=== PATIENT | female | born 1970 | race American Indian/Alaskan Native ===

== ENCOUNTER 2017-04-12 16:13 | Inpatient (IN) | payer OTHER ==
[2017-04-12] MEDS ORDERED: BENADRYL IV ONE (18:51)
[2017-04-12 19:20] LABS: Bilirubin,Urine MOD (Negative); Blood,Urine NEG (Negative); Color,Urine Amber (Yellow); Mucus,Urine FEW /HPF; Protein,Urine <15 mg/dL mg/dL (Negative)
[2017-04-12 19:26] LABS: Ictotest,Urine Positive (Negative)
[2017-04-12 19:39] LABS: Hematocrit 36.2 % (30.3-42.9); Hemoglobin 12.1 gm/dl (10.1-14.3); Mean Corpuscular HGB Conc 34 % (30-34); Mean Corpuscular Hemoglobin 30 pg (28-32); Mean Corpuscular Volume 89 fl (79-97); Platelet Count 414 K/mm3 (140-440); Red Blood Count 4.08 M/mm3 (3.65-5.03); Red Cell Distribution Width 16.4 % (13.2-15.2)
[2017-04-12 19:48] LABS: Alanine Aminotransferase 203 units/L (7-56); Albumin 3.9 g/dL (3.9-5); BUN/Creatinine Ratio 30; Blood Urea Nitrogen 9 mg/dL (7-17); Calcium 9.5 mg/dL (8.4-10.2); Hemolysis Index 0; INR 0.84 (0.87-1.13)
[2017-04-12 19:49] LABS: Partial Thromboplastin Time 26.6 Sec. (24.2-36.6)
--- NOTE | 2017-04-12 20:04 | XRay Report ---
FINAL REPORT PROCEDURE: XR CHEST ROUTINE 2V TECHNIQUE: AP lateral chest HISTORY: cough COMPARISON: No prior studies are available for comparison. FINDINGS: Heart is not enlarged. Mild central peribronchial cuffing with slight bronchial sheath thickening.. No consolidation or effusion IMPRESSION: Mild central bronchitis without pneumonia or effusion
--- NOTE | 2017-04-12 21:50 | Emergency Department Report ---
ED General Adult HPI - General Chief complaint: Chest Pain Stated complaint: FLU LIKE SYMPTOMS Time Seen by Provider: 04/12/17 18:27 Source: patient Mode of arrival: Ambulatory Limitations: No Limitations - History of Present Illness Initial comments: Patient is a 46-year-old Female who is coming in with 3 weeks of some tightness in the chest. Patient states this is worse early in the morning and late in the evening. She says during the middle of the day it's improved. She says tight warm feeling. Extends up into her shoulders and neck. Patient denies this being exertional states there is no shortness of breath. She also states she is very itchy all over she's had some loose stools that are changed color, neon green sweats chills and nausea. Patient denies any cough cold congestion and sneezing fever at this time. - Related Data Allergies Allergy/AdvReac Type Severity Reaction Status Date / Time aspirin Allergy Hives Verified 04/12/17 16:23 ibuprofen Allergy Hives Verified 04/12/17 16:23 ED Review of Systems ROS: Stated complaint: FLU LIKE SYMPTOMS Other details as noted in HPI Comment: All other systems reviewed and negative ED Past Medical Hx - Past Medical History Hx Hypertension: Yes Hx Diabetes: Yes Additional medical history: MIRGRAINES AND HIGH CHOLESTROL ED Physical Exam - General Limitations: No Limitations General appearance: alert, in no apparent distress - Head Head exam: Present: atraumatic, normocephalic - Eye Eye exam: Present: EOMI, scleral icterus - ENT ENT exam: Present: mucous membranes moist - Neck Neck exam: Present: normal inspection - Respiratory Respiratory exam: Present: normal lung sounds bilaterally. Absent: respiratory distress, wheezes, rales, rhonchi - Cardiovascular Cardiovascular Exam: Present: regular rate, normal rhythm. Absent: systolic murmur, diastolic murmur, rubs, gallop - GI/Abdominal GI/Abdominal exam: Present: soft, normal bowel sounds. Absent: distended, tenderness, guarding, rebound - Extremities Exam Extremities exam: Present: normal inspection - Back Exam Back exam: Present: normal inspection - Neurological Exam Neurological exam: Present: alert, oriented X3 - Psychiatric Psychiatric exam: Present: normal affect, normal mood - Skin Skin exam: Present: warm, dry, intact, normal color. Absent: rash ED Course Vital Signs 04/12/17 16:24 Temperature 99 F Pulse Rate 100 H Respiratory 18 Rate Blood Pressure 129/84 ED Medical Decision Making - Lab Data Result diagrams: 04/12/17 19:07 04/12/17 19:07 Lab Results 04/12/17 04/12/17 04/12/17 Range/Units 19:05 19:07 19:07 WBC 9.4 (4.5-11.0) K/mm3 RBC 4.08 (3.65-5.03) M/mm3 Hgb 12.1 (10.1-14.3) gm/dl Hct 36.2 (30.3-42.9) % MCV 89 (79-97) fl MCH 30 (28-32) pg MCHC 34 (30-34) % RDW 16.4 H (13.2-15.2) % Plt Count 414 (140-440) K/mm3 Lymph % (Auto) Sound Printer [place] % (Auto) Sound Printer Eos % (Auto) Sound Printer Baso % (Auto) Sound Printer Lymph # Sound Printer [place] # Sound Printer Eos # Sound Printer Baso # Sound Printer Seg Neutrophils % Sound Printer Seg Neutrophils # Sound Printer PT (12.2-14.9) Sec. INR (0.87-1.13) APTT (24.2-36.6) Sec. Sodium 135 L (137-145) mmol/L Potassium 3.7 (3.6-5.0) mmol/L Chloride 95.5 L (98-107) mmol/L Carbon Dioxide 22 (22-30) mmol/L Anion Gap 21 mmol/L BUN 9 (7-17) mg/dL Creatinine 0.3 L (0.7-1.2) mg/dL Estimated GFR > 60 ml/min BUN/Creatinine Ratio 30 % Glucose 107 H (65-100) mg/dL Calcium 9.5 (8.4-10.2) mg/dL Total Bilirubin 9.50 H (0.1-1.2) mg/dL AST 340 H (5-40) units/L ALT 203 H (7-56) units/L Alkaline Phosphatase 2241 H (35-129) units/L Troponin T < 0.010 (0.00-0.029) ng/mL Total Protein 8.8 H (6.3-8.2) g/dL Albumin 3.9 (3.9-5) g/dL Albumin/Globulin Ratio 0.8 % Lipase (13-60) units/L Urine Color Sarah (Yellow) Urine Turbidity Clear (Clear) Urine pH 5.0 (5.0-7.0) Ur Specific [place] 1.021 (1.003-1.030) Urine Protein <15 mg/dl (Negative) mg/dL Urine Glucose (UA) Neg (Negative) mg/dL Urine Ketones Neg (Negative) mg/dL Urine Blood Neg (Negative) Urine Nitrite Neg (Negative) Urine Bilirubin Mod (Negative) Urine Ictotest Positive (Negative) Urine Urobilinogen 4.0 (<2.0) mg/dL Ur Leukocyte Esterase Tr (Negative) Urine WBC (Auto) 2.0 (0.0-6.0) /HPF Urine RBC (Auto) 2.0 (0.0-6.0) /HPF U Epithel Cells (Auto) 5.0 (0-13.0) /HPF Urine Mucus Few /HPF 04/12/17 04/12/17 Range/Units 19:07 19:07 WBC (4.5-11.0) K/mm3 RBC (3.65-5.03) M/mm3 Hgb (10.1-14.3) gm/dl Hct (30.3-42.9) % MCV (79-97) fl MCH (28-32) pg MCHC (30-34) % RDW (13.2-15.2) % Plt Count (140-440) K/mm3 Lymph % (Auto) Ward % (Auto) Eos % (Auto) Baso % (Auto) Lymph # Ward # Eos # Baso # Seg Neutrophils % Seg Neutrophils # PT 11.9 L (12.2-14.9) Sec. INR 0.84 L (0.87-1.13) APTT 26.6 (24.2-36.6) Sec. Sodium (137-145) mmol/L Potassium (3.6-5.0) mmol/L Chloride (98-107) mmol/L Carbon Dioxide (22-30) mmol/L Anion Gap mmol/L BUN (7-17) mg/dL Creatinine (0.7-1.2) mg/dL Estimated GFR ml/min BUN/Creatinine Ratio % Glucose (65-100) mg/dL Calcium (8.4-10.2) mg/dL Total Bilirubin (0.1-1.2) mg/dL AST (5-40) units/L ALT (7-56) units/L Alkaline Phosphatase (35-129) units/L Troponin T (0.00-0.029) ng/mL Total Protein (6.3-8.2) g/dL Albumin (3.9-5) g/dL Albumin/Globulin Ratio % Lipase 36 (13-60) units/L Urine Color (Yellow) Urine Turbidity (Clear) Urine pH (5.0-7.0) Ur Specific [place] (1.003-1.030) Urine Protein (Negative) mg/dL Urine Glucose (UA) (Negative) mg/dL Urine Ketones (Negative) mg/dL Urine Blood (Negative) Urine Nitrite (Negative) Urine Bilirubin (Negative) Urine Ictotest (Negative) Urine Urobilinogen (<2.0) mg/dL Ur Leukocyte Esterase (Negative) Urine WBC (Auto) (0.0-6.0) /HPF Urine RBC (Auto) (0.0-6.0) /HPF U Epithel Cells (Auto) (0-13.0) /HPF Urine Mucus /HPF - EKG Data -: EKG Interpreted by Ca - EKG Data Interpretation: other (EKG shows sinus rhythm a rate of 89 normal axis normal intervals no ST segment elevations or depressions, interpretation is 1644) - Radiology Data Radiology results: pending - Medical Decision Making Patient is a 46-year-old female who is status post cystectomy several years ago who is presenting with jaundice. Patient's bilirubin is 9.5 with elevated alkaline phosphatase and LFTs. Patient will be admitted to Dr. Villaseñor with the hospitalist service her CT abdomen and pelvis is pending review by radiology staff there's been a delay with reading her films. Patient is stable for admission to [facility] floor. Critical care attestation.: If time is entered above; I have spent that time in minutes in the direct care of this critically ill patient, excluding procedure time. ED Disposition Clinical Impression: Hyperbilirubinemia, Elevated liver enzymes Disposition: OP ADMIT IP TO THIS HOSP Is pt being admited?: Yes Does the pt Need Aspirin: No Condition: Stable Referrals: PRIMARY CARE, [Primary Care Provider] - 3-5 Days
--- NOTE | 2017-04-12 22:14 | Cat Scan Report ---
FINAL REPORT PROCEDURE: CT ABDOMEN PELVIS W CON TECHNIQUE: Computerized axial tomography of the abdomen and pelvis was performed after the IV injection of iodinated nonionic contrast. HISTORY: jaundice COMPARISON: No prior studies are available for comparison. FINDINGS: Visualized lower thorax: No significant abnormality. Liver: Diffuse fatty infiltration of liver. Mild to moderate intrahepatic duct dilatation. Moderate extrahepatic biliary duct dilatation with possible sludge in the distal common bile duct. There is apparent stent migration distally extending from the mid to distal common bile duct to horizontal portion of the duodenum. The stent appears to of migrated 4 centimeters distally and may need to be repositioned.. Spleen: Normal size and attenuation. Gallbladder and biliary system: Normal. Pancreas: Normal. Adrenals: Normal. Kidneys: Lobulation and cortical scarring of the kidneys. GI tract: Normal. Lymph nodes and mesentery: Normal. Vasculature: Normal. Bladder: Normal. Reproductive organs: Heterogeneous lobular uterus. Peritoneum: No free fluid. Musculoskeletal structures: No significant abnormality. Other: None. IMPRESSION: Distal migration of the endo biliary duct stent at least 4-5 centimeters resulting in intrahepatic and extrahepatic biliary duct dilatation with sludge accumulation at the mid to distal common bile duct near the proximal endo biliary stent . Suggest adjustment of the endo biliary duct stent
[2017-04-12] MEDS ORDERED: ZOFRAN IV PRN (22:20)
[2017-04-12] MEDS ORDERED: D50W (25GM) Syringe IV PRN (22:20)
[2017-04-12] MEDS ORDERED: DULCOLAX PR PRN (22:20)
[2017-04-12] MEDS ORDERED: MILK OF MAGNESIA PO PRN (22:20)
--- NOTE | 2017-04-12 23:47 | History and Physical Report ---
History of Present Illness Date of examination: 04/12/17 Date of admission: 04/12/17 22:20 Chief complaint: chest pain for 4 weeks itching for 3 weeks hot and cold for 2 weeks History of present illness: Patient is a 46-year-old Female who is coming in with 4 weeks of some tightness in the chest. Patient states this is worse early in the morning and late in the evening. She says during the middle of the day it's improved. its intermittent, happens every 2-3 days, non exertional. Extends up into her shoulders and neck. Patient denies shortness of breath, palpitations, dizziness or LOC. She also states she is very itchy all over she's had some loose stools that are changed color, sweating chills and nausea. Patient denies any cough cold congestion and sneezing fever at this time. denies recent travel, OTC meds or alcohol abuse. she was noted to be jaundiced with markedly abnormal LFTs and is being admitted for further management Past History Past Medical History: diabetes, hypertension, hyperlipidemia, other (migraine) Past Surgical History: cholecystectomy Social history: no significant social history. denies: smoking, alcohol abuse Family history: no significant family history Medications and Allergies Allergies Allergy/AdvReac Type Severity Reaction Status Date / Time aspirin Allergy Hives Verified 04/12/17 16:23 ibuprofen Allergy Hives Verified 04/12/17 16:23 Active Meds: Active Medications Acetaminophen (Tylenol) 650 mg PO Q4H PRN PRN Reason: Pain MILD(1-3)/Fever >100.5/MARISCAL Bisacodyl (Dulcolax) 10 mg NV QDAY PRN PRN Reason: Constipation unrelieved by [facility] Dextrose (D50w (25gm) Syringe) 50 ml IV PRN PRN PRN Reason: Hypoglycemia Heparin Sodium (Porcine) (Heparin) 5,000 unit SUB-Q Q8HR CROW Sodium Chloride (Nacl 0.45% 1000 Ml) 1,000 mls @ 75 mls/hr IV DIRECT CROW Insulin Aspart (Novolog) 0 units SUB-Q ACHS CROW; Protocol Magnesium Hydroxide (Milk Of Magnesia) 30 ml PO Q4H PRN PRN Reason: Constipation Ondansetron HCl (Zofran) 4 mg IV Q8H PRN PRN Reason: N/V unrelieved by Reglan Review of Systems Constitutional: chills, sweats, fatigue, no weight loss, no fever, no anorexia, no weakness, no lethargy Ears, nose, mouth and throat: no nasal congestion, no sore throat, no headache Cardiovascular: high blood pressure, no chest pain, no orthopnea, no palpitations, no syncope, no shortness of breath Respiratory: no cough, no shortness of breath Gastrointestinal: nausea, vomiting (for 1 day), diarrhea (for 1 day), no abdominal pain, no melena Genitourinary Female: no urge incontinence Rectal: no pain Musculoskeletal: no low back pain Integumentary: pruritis, jaundice, dryness, no rash Neurological: no head injury, no seizures, no syncope Psychiatric: no anxiety, no depression Endocrine: no excessive thirst, no polydipsia, no polyuria Allergic/Immunologic: no urticaria Exam - Constitutional Vitals: Temp Pulse Resp BP Pulse Ox 99 F 81 14 129/84 100 04/12/17 16:24 04/12/17 22:05 04/12/17 22:05 04/12/17 16:24 04/12/17 22:05 General appearance: Present: no acute distress, well-nourished - EENT Eyes: Present: PERRL, EOM intact, scleral icterus ENT: hearing intact, clear oral mucosa - Neck Neck: Present: supple, normal ROM. Absent: masses or JVD - Respiratory Respiratory effort: normal Respiratory: bilateral: CTA - Cardiovascular Rhythm: regular Heart Sounds: Present: S1 & S2 - Extremities Extremities: No edema - Abdominal General gastrointestinal: Present: soft, non-tender. Absent: hepatomegaly, splenomegaly - Rectal Rectal Exam: deferred - Integumentary Integumentary: Present: clear, warm. Absent: rash - Musculoskeletal Musculoskeletal: strength equal bilaterally - Psychiatric Psychiatric: appropriate mood/affect - Neurologic Neurologic: CNII-XII intact, no focal deficits, moves all extremities Results - Labs CBC & Chem 7: 04/12/17 19:07 04/12/17 19:07 Labs: Abnormal lab results 04/12/17 04/12/17 04/12/17 Range/Units 19:07 19:07 19:07 RDW 16.4 H (13.2-15.2) % PT 11.9 L (12.2-14.9) Sec. INR 0.84 L (0.87-1.13) Sodium 135 L (137-145) mmol/L Chloride 95.5 L (98-107) mmol/L Creatinine 0.3 L (0.7-1.2) mg/dL Glucose 107 H (65-100) mg/dL Total Bilirubin 9.50 H (0.1-1.2) mg/dL AST 340 H (5-40) units/L ALT 203 H (7-56) units/L Alkaline Phosphatase 2241 H (35-129) units/L Total Protein 8.8 H (6.3-8.2) g/dL Assessment and Plan - Patient Problems (1) Elevated liver enzymes Current Visit: Yes Status: Acute Plan to address problem: unclear etialogy r/o acute hepatitis r/o obstructive jaundice ( she has hx of patricio.) CT abd/pelvis reviewed there is distal migration of endobiliary duct stent with sludge accumulation of distal CBD gi consult on board will keep patient NPO IN CASE she needs ERCP (2) Type 2 diabetes mellitus Current Visit: Yes Status: Chronic Qualifiers: Diabetes mellitus complication status: without complication Diabetes mellitus manager terminal insulin use: without manager terminal use Qualified Code(s): E11.9 - Type 2 diabetes mellitus without complications Plan to address problem: start on insulin SS (3) HTN (hypertension) Current Visit: Yes Status: Acute Qualifiers: Hypertension type: essential hypertension Qualified Code(s): I10 - Essential (primary) hypertension Plan to address problem: home meds not known and not entered she is normotensive at this time (4) Hyperlipidemia Current Visit: Yes Status: Chronic Qualifiers: Hyperlipidemia type: mixed hyperlipidemia Qualified Code(s): E78.2 - Mixed hyperlipidemia Plan to address problem: home meds not entered will hold statin due to abnormal LFTs (5) Hyperbilirubinemia Current Visit: Yes Status: Acute Plan to address problem: 2/2 CBD sludge and endo biliary duct stent migration
[2017-04-13] MEDS: TYLENOL PO PRN ×2 (00:41→08:39)
[2017-04-13] MEDS: NACL 0.45% 1000 ML 1,000 ML IV SCH ×2 (00:42→13:29)
[2017-04-13] MEDS: BENADRYL IV PRN ×2 (01:14→10:40)
[2017-04-13 05:16] LABS: Alanine Aminotransferase 171 units/L (7-56); Albumin 3.3 g/dL (3.9-5); BUN/Creatinine Ratio 27; Blood Urea Nitrogen 8 mg/dL (7-17); Calcium 8.6 mg/dL (8.4-10.2); Hemolysis Index 0
[2017-04-13 05:27] LABS: Hepatitis A Antibody IgM Non-Reactive (NonReactive); Hepatitis B Core IgM Non-Reactive (NonReactive); Hepatitis B Surface Antigen Non-Reactive (Negative); Hepatitis C Virus Antibody Non-Reactive (NonReactive)
[2017-04-13] MEDS: HEPARIN SUB-Q SCH ×3 (05:55→22:32)
[2017-04-13] MEDS: NOVOLOG SUB-Q SCH ×3 (08:27→18:04)
--- NOTE | 2017-04-13 11:48 | Event Note ---
Date: 04/13/17 - full consult dictated - pt w/ noted migrated biliary stent (pt did not tell me about previous stent placement) - will discuss w/ pt in am, probably ercp Saturday
--- NOTE | 2017-04-13 17:43 | Progress Note ---
Assessment and Plan Assessment and plan: --Transaminitis; Unclear etiology, check hepatitis panel GI following, continue supportive care --Hypertension; moderate controlled, continue current antihypertensives When necessary medications --Dyslipidemia; hold statin in view of transaminitis --Hyperbilirubinemia; secondly to transaminitis, --DVT prophylaxis; SCDs History Interval history: She was seen and examined medical records reviewed Admitted with transaminitis Complaints of generalized weakness, no nausea or vomiting [place] signs reviewed stable Hospitalist Physical - Constitutional Vitals: Temp Pulse Resp BP Pulse Ox 98.1 F 66 16 124/73 100 04/13/17 15:26 04/13/17 07:45 04/13/17 15:26 04/13/17 15:26 04/13/17 07:45 General appearance: Present: no acute distress, well-nourished - EENT Eyes: Present: PERRL, EOM intact - Neck Neck: Present: supple, normal ROM - Respiratory Respiratory effort: normal Respiratory: negative: rales, rhonchi, wheezing - Cardiovascular Rhythm: regular Heart Sounds: Present: S1 & S2 - Extremities Extremities: no ischemia, No edema - Abdominal General gastrointestinal: soft, non-tender, non-distended, normal bowel sounds - Integumentary Integumentary: Present: clear, warm - Psychiatric Psychiatric: appropriate mood/affect, cooperative - Neurologic Neurologic: CNII-XII intact, moves all extremities Results - Labs CBC & Chem 7: 04/12/17 19:07 04/13/17 04:38 Labs: Laboratory Last Values WBC 9.4 K/mm3 (4.5-11.0) 04/12/17 19:07 RBC 4.08 M/mm3 (3.65-5.03) 04/12/17 19:07 Hgb 12.1 gm/dl (10.1-14.3) 04/12/17 19:07 Hct 36.2 % (30.3-42.9) 04/12/17 19:07 MCV 89 fl (79-97) 04/12/17 19:07 MCH 30 pg (28-32) 04/12/17 19:07 MCHC 34 % (30-34) 04/12/17 19:07 RDW 16.4 % (13.2-15.2) H 04/12/17 19:07 Plt Count 414 K/mm3 (140-440) 04/12/17 19:07 Lymph % (Auto) Farm Advisor 04/12/17 19:07 [place] % (Auto) Farm Advisor 04/12/17 19:07 Eos % (Auto) Farm Advisor 04/12/17 19:07 Baso % (Auto) Farm Advisor 04/12/17 19:07 Lymph # Farm Advisor 04/12/17 19:07 [place] # Farm Advisor 04/12/17 19:07 Eos # Farm Advisor 04/12/17 19:07 Baso # Farm Advisor 04/12/17 19:07 Seg Neutrophils % Farm Advisor 04/12/17 19:07 Seg Neutrophils # Farm Advisor 04/12/17 19:07 PT 11.9 Sec. (12.2-14.9) L 04/12/17 19:07 INR 0.84 (0.87-1.13) L 04/12/17 19:07 APTT 26.6 Sec. (24.2-36.6) 04/12/17 19:07 Sodium 135 mmol/L (137-145) L 04/13/17 04:38 Potassium 3.5 mmol/L (3.6-5.0) L 04/13/17 04:38 Chloride 97.7 mmol/L (98-107) L 04/13/17 04:38 Carbon Dioxide 22 mmol/L (22-30) 04/13/17 04:38 Anion Gap 19 mmol/L 04/13/17 04:38 BUN 8 mg/dL (7-17) 04/13/17 04:38 Creatinine 0.3 mg/dL (0.7-1.2) L 04/13/17 04:38 Estimated GFR > 60 ml/min 04/13/17 04:38 BUN/Creatinine Ratio 27 % 04/13/17 04:38 Glucose 101 mg/dL (65-100) H 04/13/17 04:38 POC Glucose 125 (70-105) H 04/13/17 16:32 Hemoglobin A1c 4.9 % (4-6) 04/13/17 04:38 Calcium 8.6 mg/dL (8.4-10.2) 04/13/17 04:38 Total Bilirubin 7.50 mg/dL (0.1-1.2) H 04/13/17 04:38 AST 312 units/L (5-40) H 04/13/17 04:38 ALT 171 units/L (7-56) H 04/13/17 04:38 Alkaline Phosphatase 1845 units/L (35-129) H 04/13/17 04:38 Troponin T < 0.010 ng/mL (0.00-0.029) 04/12/17 19:07 Total Protein 7.1 g/dL (6.3-8.2) 04/13/17 04:38 Albumin 3.3 g/dL (3.9-5) L 04/13/17 04:38 Albumin/Globulin Ratio 0.9 % 04/13/17 04:38 Lipase 36 units/L (13-60) 04/12/17 19:07 Urine Color Sarah (Yellow) 04/12/17 19:05 Urine Turbidity Clear (Clear) 04/12/17 19:05 Urine pH 5.0 (5.0-7.0) 04/12/17 19:05 Ur Specific [place] 1.021 (1.003-1.030) 04/12/17 19:05 Urine Protein <15 mg/dl mg/dL (Negative) 04/12/17 19:05 Urine Glucose (UA) Neg mg/dL (Negative) 04/12/17 19:05 Urine Ketones Neg mg/dL (Negative) 04/12/17 19:05 Urine Blood Neg (Negative) 04/12/17 19:05 Urine Nitrite Neg (Negative) 04/12/17 19:05 Urine Bilirubin Mod (Negative) 04/12/17 19:05 Urine Ictotest Positive (Negative) 04/12/17 19:05 Urine Urobilinogen 4.0 mg/dL (<2.0) 04/12/17 19:05 Ur Leukocyte Esterase Tr (Negative) 04/12/17 19:05 Urine WBC (Auto) 2.0 /HPF (0.0-6.0) 04/12/17 19:05 Urine RBC (Auto) 2.0 /HPF (0.0-6.0) 04/12/17 19:05 U Epithel Cells (Auto) 5.0 /HPF (0-13.0) 04/12/17 19:05 Urine Mucus Few /HPF 04/12/17 19:05 Hepatitis A IgM Ab Non-reactive (NonReactive) 04/13/17 04:38 Hep Bs Antigen Non-reactive (Negative) 04/13/17 04:38 Hep B Core IgM Ab Non-reactive (NonReactive) 04/13/17 04:38 Hepatitis C Antibody Non-reactive (NonReactive) 04/13/17 04:38
--- NOTE | 2017-04-13 19:21 | Consultation ---
INDICATIONS: 1. Jaundice. 2. Increased liver function tests. HISTORY OF PRESENT ILLNESS: The patient is a 46-year-old black female who presented with jaundice and increased liver function tests. The patient reports two weeks ago, she started having chest tightness and then started having this feeling of severe itching 3 weeks ago. She reports, but then she had some fevers and chills. She reports some yellow eyes. She reports nausea, vomiting, or abdominal pain. She denies any lower GI symptoms including diarrhea, constipation, or rectal bleeding. The patient subsequently came to Emergency Room where she was noted to have increased liver function tests and jaundice and subsequently admitted. The patient subsequently had a CT scan showing migration of a biliary stent. The patient did not say anything about an ERCP or biliary stent being placed in the past. PAST MEDICAL HISTORY: 1. Diabetes. 2. Hypertension. 3. High cholesterol. PAST SURGICAL HISTORY: Status post cholecystectomy. MEDICATIONS: See chart. ALLERGIES: ASPIRIN AND IBUPROFEN. SOCIAL HISTORY: Denies alcohol, tobacco or IV drug abuse. FAMILY HISTORY: Negative for colon cancer, IBD, or liver disease. REVIEW OF SYSTEMS: GENERAL: Reports mild weakness. HEENT: No visual complaints or tinnitus. PULMONARY: No shortness of breath, coughing, or chest pain. GASTROINTESTINAL: Reports jaundice and itching. All points of 13-point review of systems otherwise negative. PHYSICAL EXAMINATION: VITAL SIGNS: Temperature of 98.4, pulse 79, respiratory rate 18, blood pressure 130/72. GENERAL: Fairly nourished female in no acute distress. HEENT: Pupils equal, round, reactive. Sclerae icteric. PULMONARY: Clear. CARDIOVASCULAR: Regular rhythm. Normal S1, S2. ABDOMEN: Positive bowel sounds, soft. SKIN: No obvious rashes. LABORATORY DATA: White count of 9.4, hemoglobin and hematocrit of 12.1 and 36.2, platelet count of 414. Coags within normal limits. Chem-7; sodium 135, potassium 3.5, chloride 98, CO2 22. BUN and creatinine of 8 and 0.3. LFTs: Total bilirubin of 7.5. AST ALT of 312 and 171. Alkaline phosphatase of 1845. Lipase within normal limits. CT scan showed migration of common bile duct stent distally with intra and extrahepatic dilation. ASSESSMENT AND PLAN: A 46-year-old female reported status post cholecystectomy, now presents with 4 weeks of chest discomfort and jaundice and itching and with noted increased liver function tests and a CT scan showed migration of a biliary stent. I talked to the patient and she had not told me anything about any previous ERCP or stent placement here. Management as noted below. PLAN: 1. Follow LFTs. 2. We will review CT scan. 3. We will discuss with the patient when the previous stent was placed. 4. The patient will require ERCP with stent removal/repositioning as an inpatient. 5. We will follow. JOB# [id number] [facility]
[2017-04-13] MEDS ORDERED: ULTRAM PO ONE (20:33)
[2017-04-13] MEDS: BANOPHEN ANTI-ITCH TP PRN (22:33)
[2017-04-14] MEDS: NOVOLOG SUB-Q SCH ×5 (00:39→22:02)
[2017-04-14] MEDS: NACL 0.45% 1000 ML 1,000 ML IV SCH ×2 (03:39→18:21)
[2017-04-14] MEDS: BANOPHEN ANTI-ITCH TP PRN (03:40)
[2017-04-14] MEDS: HEPARIN SUB-Q SCH ×3 (05:41→21:14)
[2017-04-14 07:18] LABS: Alanine Aminotransferase 167 units/L (7-56); Albumin 3.5 g/dL (3.9-5); BUN/Creatinine Ratio 30; Bilirubin,Direct 6.7 mg/dL (0-0.2); Blood Urea Nitrogen 9 mg/dL (7-17); Calcium 8.9 mg/dL (8.4-10.2); Hemolysis Index 1
[2017-04-14] MEDS ORDERED: CEPHULAC PO PRN (08:42)
--- NOTE | 2017-04-14 13:21 | Gastroenterology Progress Note ---
Assessment and Plan GI: increase lft's with noted biliary stent on ct scan - per pt stent placed 2 years ago but thought was removed during gb surgery - suspect clogged stent - ERCP in am Subjective Date of service: 04/14/17 Interval history: - reports still itching, denies other complaints Objective - Constitutional Vitals: Temp Pulse Resp BP Pulse Ox 98.2 F 66 18 132/77 99 04/14/17 07:19 04/14/17 07:19 04/14/17 07:19 04/14/17 07:19 04/14/17 07:19 General appearance: no acute distress - EENT Eyes: scleral icterus - Respiratory Respiratory: bilateral: CTA - Cardiovascular Rhythm: regular Heart Sounds: Present: S1 & S2 - Gastrointestinal General gastrointestinal: Present: soft, non-tender, non-distended - Labs CBC & Chem 7: 04/12/17 19:07 04/14/17 06:39 Labs: Laboratory Results - last 24 hr 04/13/17 04/13/17 04/14/17 16:32 21:41 05:22 Sodium Potassium Chloride Carbon Dioxide Anion Gap BUN Creatinine Estimated GFR BUN/Creatinine Ratio Glucose POC Glucose 125 H 128 H 99 Calcium Total Bilirubin Direct Bilirubin Indirect Bilirubin AST ALT Alkaline Phosphatase Ammonia Total Protein Albumin Albumin/Globulin Ratio 04/14/17 04/14/17 04/14/17 06:39 06:39 11:29 Sodium 136 L Potassium 3.9 Chloride 100.0 Carbon Dioxide 21 L Anion Gap 19 BUN 9 Creatinine 0.3 L Estimated GFR > 60 BUN/Creatinine Ratio 30 Glucose 103 H POC Glucose 114 H Calcium 8.9 Total Bilirubin 8.60 H Direct Bilirubin 6.7 H Indirect Bilirubin 1.9 AST 315 H ALT 167 H Alkaline Phosphatase 1865 H Ammonia 100.0 H Total Protein 7.2 Albumin 3.5 L Albumin/Globulin Ratio 0.9
[2017-04-14] MEDS: BENADRYL PO PRN ×2 (15:11→21:14)
--- NOTE | 2017-04-14 18:35 | Progress Note ---
Assessment and Plan Assessment and plan: --Hyperammonemia; ammonia level is 100, patient is alert awake oriented 3 Management Lactulose and monitor levels --Hepatic encephalopathy; lactulose --Transaminitis; worsening, probably obstructive GI planning ERCP tomorrow, continue current management hepatitis panel negative --Hypertension; moderate controlled, continue current antihypertensives When necessary medications --Dyslipidemia; hold statin in view of transaminitis --Hyperbilirubinemia; secondly to transaminitis, --DVT prophylaxis; SCDs GI recommendations noted and appreciated Follow ERCP tomorrow and adjust the management as needed Plan of care reviewed with the patient and her nurse History Interval history: Patient seen and evaluated medical records reviewed. Patient is icteric, worsening LFTs Elevated ammonia at 100 Patient is comfortable in no new complaints Patient is alert awake oriented 3 Vital signs reviewed Hospitalist Physical - Constitutional Vitals: Temp Pulse Resp BP Pulse Ox 98.2 F 66 18 132/77 99 04/14/17 07:19 04/14/17 07:19 04/14/17 07:19 04/14/17 07:19 04/14/17 07:19 General appearance: Present: no acute distress, well-nourished - EENT Eyes: Present: PERRL, scleral icterus - Neck Neck: Present: supple, normal ROM - Respiratory Respiratory effort: normal Respiratory: bilateral: diminished, negative: rales, rhonchi, wheezing - Cardiovascular Rhythm: regular Heart Sounds: Present: S1 & S2 - Extremities Extremities: no ischemia, No edema - Abdominal General gastrointestinal: soft, non-tender, non-distended, normal bowel sounds - Integumentary Integumentary: Present: clear, warm - Psychiatric Psychiatric: appropriate mood/affect, cooperative - Neurologic Neurologic: CNII-XII intact, moves all extremities Results - Labs CBC & Chem 7: 04/12/17 19:07 04/14/17 06:39 Labs: Laboratory Last Values WBC 9.4 K/mm3 (4.5-11.0) 04/12/17 19:07 RBC 4.08 M/mm3 (3.65-5.03) 04/12/17 19:07 Hgb 12.1 gm/dl (10.1-14.3) 04/12/17 19:07 Hct 36.2 % (30.3-42.9) 03/02/18 19:07 MCV 89 fl (79-97) 04/12/17 19:07 MCH 30 pg (28-32) 04/12/17 19:07 MCHC 34 % (30-34) 04/12/17 19:07 RDW 16.4 % (13.2-15.2) H 04/12/17 19:07 Plt Count 414 K/mm3 (140-440) 04/12/17 19:07 Lymph % (Auto) [employer] Administrator 04/12/17 19:07 [place] % (Auto) [employer] Administrator 04/12/17 19:07 Eos % (Auto) [employer] Administrator 04/12/17 19:07 Baso % (Auto) [employer] Administrator 04/12/17 19:07 Lymph # [employer] Administrator 04/12/17 19:07 [place] # Senior [employer] Administrator 04/12/17 19:07 Eos # Senior [employer] Administrator 04/12/17 19:07 Baso # [employer] Administrator 04/12/17 19:07 Seg Neutrophils % Senior [employer] Administrator 04/12/17 19:07 Seg Neutrophils # Senior [employer] Administrator 04/12/17 19:07 PT 11.9 Sec. (12.2-14.9) L 04/12/17 19:07 INR 0.84 (0.87-1.13) L 04/12/17 19:07 APTT 26.6 Sec. (24.2-36.6) 04/12/17 19:07 Sodium 136 mmol/L (137-145) L 04/14/17 06:39 Potassium 3.9 mmol/L (3.6-5.0) 04/14/17 06:39 Chloride 100.0 mmol/L (98-107) 04/14/17 06:39 Carbon Dioxide 21 mmol/L (22-30) L 04/14/17 06:39 Anion Gap 19 mmol/L 04/14/17 06:39 BUN 9 mg/dL (7-17) 04/14/17 06:39 Creatinine 0.3 mg/dL (0.7-1.2) L 04/14/17 06:39 Estimated GFR > 60 ml/min 04/14/17 06:39 BUN/Creatinine Ratio 30 % 04/14/17 06:39 Glucose 103 mg/dL (65-100) H 04/14/17 06:39 POC Glucose 100 (70-105) 04/14/17 16:31 Hemoglobin A1c 4.9 % (4-6) 04/13/17 04:38 Calcium 8.9 mg/dL (8.4-10.2) 04/14/17 06:39 Total Bilirubin 8.60 mg/dL (0.1-1.2) H 04/14/17 06:39 Direct Bilirubin 6.7 mg/dL (0-0.2) H 04/14/17 06:39 Indirect Bilirubin 1.9 mg/dL 04/14/17 06:39 AST 315 units/L (5-40) H 04/14/17 06:39 ALT 167 units/L (7-56) H 04/14/17 06:39 Alkaline Phosphatase 1865 units/L (35-129) H 04/14/17 06:39 Ammonia 100.0 umol/L (25-60) H 04/14/17 06:39 Troponin T < 0.010 ng/mL (0.00-0.029) 04/12/17 19:07 Total Protein 7.2 g/dL (6.3-8.2) 04/14/17 06:39 Albumin 3.5 g/dL (3.9-5) L 04/14/17 06:39 Albumin/Globulin Ratio 0.9 % 04/14/17 06:39 Lipase 36 units/L (13-60) 04/12/17 19:07 Urine Color Sarah (Yellow) 04/12/17 19:05 Urine Turbidity Clear (Clear) 04/12/17 19:05 Urine pH 5.0 (5.0-7.0) 04/12/17 19:05 Ur Specific [place] 1.021 (1.003-1.030) 04/12/17 19:05 Urine Protein <15 mg/dl mg/dL (Negative) 04/12/17 19:05 Urine Glucose (UA) Neg mg/dL (Negative) 04/12/17 19:05 Urine Ketones Neg mg/dL (Negative) 04/12/17 19:05 Urine Blood Neg (Negative) 04/12/17 19:05 Urine Nitrite Neg (Negative) 04/12/17 19:05 Urine Bilirubin Mod (Negative) 04/12/17 19:05 Urine Ictotest Positive (Negative) 04/12/17 19:05 Urine Urobilinogen 4.0 mg/dL (<2.0) 04/12/17 19:05 Ur Leukocyte Esterase Tr (Negative) 04/12/17 19:05 Urine WBC (Auto) 2.0 /HPF (0.0-6.0) 04/12/17 19:05 Urine RBC (Auto) 2.0 /HPF (0.0-6.0) 04/12/17 19:05 U Epithel Cells (Auto) 5.0 /HPF (0-13.0) 04/12/17 19:05 Urine Mucus Few /HPF 04/12/17 19:05 Hepatitis A IgM Ab Non-reactive (NonReactive) 04/13/17 04:38 Hep Bs Antigen Non-reactive (Negative) 04/13/17 04:38 Hep B Core IgM Ab Non-reactive (NonReactive) 04/13/17 04:38 Hepatitis C Antibody Non-reactive (NonReactive) 04/13/17 04:38
[2017-04-14] MEDS: ULTRAM PO PRN (22:54)
[2017-04-15] MEDS: NACL 0.45% 1000 ML 1,000 ML IV SCH (02:53)
[2017-04-15] MEDS: HEPARIN SUB-Q SCH ×3 (05:43→23:18)
[2017-04-15 06:34] LABS: Albumin 3.3 g/dL (3.9-5)
[2017-04-15] MEDS: NOVOLOG SUB-Q SCH ×3 (12:22→22:15)
--- NOTE | 2017-04-15 13:51 | Anesthesia Consultation ---
Anesthesia Consult and Med Hx Date of service: 04/15/17 - Airway Anesthetic Teeth Evaluation: Good ROM Head & Neck: Adequate Mental/Hyoid Distance: Adequate Mallampati Class: Class I Intubation Access Assessment: Good - Pulmonary Exam CTA: Yes - Cardiac Exam Cardiac Exam: RRR - Pre-Operative Health Status ASA Pre-Surgery Classification: ASA2 Proposed Anesthetic Plan: IV Sedation - Pulmonary Hx Smoking: No - Cardiovascular System Hx Hypertension: No - Central Nervous System Hx Psychiatric Problems: No - Endocrine Hx Non-Insulin Dependent Diabetes: No (diet controlleed) - Other Systems Hx Cancer: No
--- NOTE | 2017-04-15 13:51 | Anesthesia Day of Surgery ---
Anesthesia Day of Surgery - Day of Surgery Patient Examined: Yes Patient H&P Reviewed: Yes Patient is NPO: Yes Beta Blockers: No
[2017-04-15] MEDS ORDERED: GLUCAGEN IV ONE (14:05)
[2017-04-15] MEDS: NACL 0.9% 1000 ML 1,000 ML IV SCH (14:05)
[2017-04-15] MEDS ORDERED: XYLOCAINE CARDIAC IV ONE (14:31)
[2017-04-15] MEDS ORDERED: VERSED ONE (14:32)
[2017-04-15] MEDS ORDERED: DILAUDID ONE (14:32)
[2017-04-15] MEDS ORDERED: DIPRIVAN 10 MG/ML IV ONE ×5 (14:33→16:24)
[2017-04-15] MEDS ORDERED: WATER FOR IRRIG STERILE IR ONE (14:35)
[2017-04-15] MEDS ORDERED: NACL 0.9% 100 ML ONE (14:36)
--- NOTE | 2017-04-15 17:38 | Post Operative Note ---
Pre-op diagnosis: biliary obstruction, increase lft's Post-op diagnosis: same Findings: ERCP: stone noted, removed - cholangiogram w/ dilated cbd w/ filling defects - sphinterotomy performed - technically difficult procedure lasting > 1 1/2 hrs - large amount of stones and sludge removed w/ balloons - distal large stones/sludge unable to be removed distal multiple attempts - procedure terminated - 10F 7 cm stent placed Procedure: ERCP Anesthesia: MAC Surgeon: FADI CALLE Estimated blood loss: none Pathology: none Condition: stable Disposition: floor
--- NOTE | 2017-04-15 18:21 | Progress Note ---
Assessment and Plan Assessment and plan: --Hyperammonemia; ammonia decreased 100-80 patient is alert awake oriented 3 Lactulose and monitor levels --Hepatic encephalopathy; lactulose --Transaminitis; very minimal improvement, ERCP today Continue supportive care --Hypertension; moderate controlled, continue current antihypertensives When necessary medications --Dyslipidemia; hold statin in view of transaminitis --Hyperbilirubinemia; supple obstruction, hepatitis panel negative --Patient reports unintentional weight loss for the last few weeks, Workup is in progress by her primary care physician, GI following --DVT prophylaxis; SCDs Disposition; possible discharge in 1-2 days if stable Patient can have discussed with the workup as outpatient Plan of care reviewed with the patient and her nurse History Interval history: Patient seen and examined medical records reviewed Feels slightly better, scheduled for ERCP today Patient denies any nausea vomiting or abdominal pain Has transaminitis and elevated ammonia, patient refused lactulose yesterday. Alert awake oriented 3 not in acute distress Vital signs reviewed Hospitalist Physical - Constitutional Vitals: Temp Pulse Resp BP Pulse Ox 97.5 F L 63 21 108/53 100 04/15/17 17:03 04/15/17 17:33 04/15/17 17:33 04/15/17 17:33 04/15/17 17:33 General appearance: Present: no acute distress, well-nourished - EENT Eyes: Present: PERRL, EOM intact, scleral icterus - Neck Neck: Present: supple, normal ROM - Respiratory Respiratory effort: normal Respiratory: negative: rales, rhonchi, wheezing - Cardiovascular Rhythm: regular Heart Sounds: Present: S1 & S2 - Extremities Extremities: no ischemia, No edema - Abdominal General gastrointestinal: soft, non-tender, non-distended, normal bowel sounds - Integumentary Integumentary: Present: clear, warm, jaundice - Psychiatric Psychiatric: appropriate mood/affect, cooperative - Neurologic Neurologic: CNII-XII intact, moves all extremities Results - Labs CBC & Chem 7: 04/12/17 19:07 04/14/17 06:39 Labs: Laboratory Last Values WBC 9.4 K/mm3 (4.5-11.0) 04/12/17 19:07 RBC 4.08 M/mm3 (3.65-5.03) 04/12/17 19:07 Hgb 12.1 gm/dl (10.1-14.3) 04/12/17 19:07 Hct 36.2 % (30.3-42.9) 04/12/17 19:07 MCV 89 fl (79-97) 04/12/17 19:07 MCH 30 pg (28-32) 04/12/17 19:07 MCHC 34 % (30-34) 04/12/17 19:07 RDW 16.4 % (13.2-15.2) H 04/12/17 19:07 Plt Count 414 K/mm3 (140-440) 04/12/17 19:07 Lymph % (Auto) Upfitter 04/12/17 19:07 [place] % (Auto) Upfitter 04/12/17 19:07 Eos % (Auto) Upfitter 04/12/17 19:07 Baso % (Auto) Upfitter 04/12/17 19:07 Lymph # Upfitter 04/12/17 19:07 [place] # Upfitter 04/12/17 19:07 Eos # Upfitter 04/12/17 19:07 Baso # Upfitter 04/12/17 19:07 Seg Neutrophils % Upfitter 04/12/17 19:07 Seg Neutrophils # Upfitter 04/12/17 19:07 PT 11.9 Sec. (12.2-14.9) L 04/12/17 19:07 INR 0.84 (0.87-1.13) L 04/12/17 19:07 APTT 26.6 Sec. (24.2-36.6) 04/12/17 19:07 Sodium 136 mmol/L (137-145) L 04/14/17 06:39 Potassium 3.9 mmol/L (3.6-5.0) 04/14/17 06:39 Chloride 100.0 mmol/L (98-107) 04/14/17 06:39 Carbon Dioxide 21 mmol/L (22-30) L 04/14/17 06:39 Anion Gap 19 mmol/L 04/14/17 06:39 BUN 9 mg/dL (7-17) 04/14/17 06:39 Creatinine 0.3 mg/dL (0.7-1.2) L 04/14/17 06:39 Estimated GFR > 60 ml/min 04/14/17 06:39 BUN/Creatinine Ratio 30 % 04/14/17 06:39 Glucose 103 mg/dL (65-100) H 04/14/17 06:39 POC Glucose 92 (70-105) 04/15/17 11:48 Hemoglobin A1c 4.9 % (4-6) 04/13/17 04:38 Calcium 8.9 mg/dL (8.4-10.2) 04/14/17 06:39 Total Bilirubin 8.80 mg/dL (0.1-1.2) H 04/15/17 05:47 Direct Bilirubin 7.0 mg/dL (0-0.2) H 04/15/17 05:47 Indirect Bilirubin 1.8 mg/dL 04/15/17 05:47 AST 283 units/L (5-40) H 04/15/17 05:47 ALT 153 units/L (7-56) H 04/15/17 05:47 Alkaline Phosphatase 1634 units/L (35-129) H 04/15/17 05:47 Ammonia 80.0 umol/L (25-60) H 04/15/17 05:47 Troponin T < 0.010 ng/mL (0.00-0.029) 04/12/17 19:07 Total Protein 7.0 g/dL (6.3-8.2) 04/15/17 05:47 Albumin 3.3 g/dL (3.9-5) L 04/15/17 05:47 Albumin/Globulin Ratio 0.9 % 04/15/17 05:47 Lipase 36 units/L (13-60) 04/12/17 19:07 Urine Color [place] (Yellow) 04/12/17 19:05 Urine Turbidity Clear (Clear) 04/12/17 19:05 Urine pH 5.0 (5.0-7.0) 04/12/17 19:05 Ur Specific [place] 1.021 (1.003-1.030) 04/12/17 19:05 Urine Protein <15 mg/dl mg/dL (Negative) 04/12/17 19:05 Urine Glucose (UA) Neg mg/dL (Negative) 04/12/17 19:05 Urine Ketones Neg mg/dL (Negative) 04/12/17 19:05 Urine Blood Neg (Negative) 04/12/17 19:05 Urine Nitrite Neg (Negative) 04/12/17 19:05 Urine Bilirubin Mod (Negative) 04/12/17 19:05 Urine Ictotest Positive (Negative) 04/12/17 19:05 Urine Urobilinogen 4.0 mg/dL (<2.0) 04/12/17 19:05 Ur Leukocyte Esterase Tr (Negative) 04/12/17 19:05 Urine WBC (Auto) 2.0 /HPF (0.0-6.0) 04/12/17 19:05 Urine RBC (Auto) 2.0 /HPF (0.0-6.0) 04/12/17 19:05 U Epithel Cells (Auto) 5.0 /HPF (0-13.0) 04/12/17 19:05 Urine Mucus Few /HPF 04/12/17 19:05 Hepatitis A IgM Ab Non-reactive (NonReactive) 04/13/17 04:38 Hep Bs Antigen Non-reactive (Negative) 04/13/17 04:38 Hep B Core IgM Ab Non-reactive (NonReactive) 04/13/17 04:38 Hepatitis C Antibody Non-reactive (NonReactive) 04/13/17 04:38
[2017-04-15] MEDS: ULTRAM PO PRN (20:27)
[2017-04-15] MEDS ORDERED: CHLORASEPTIC MM PRN (23:05)
[2017-04-15] MEDS: MORPHINE IV PRN (23:17)
[2017-04-16] MEDS: NACL 0.45% 1000 ML 1,000 ML IV SCH (01:26)
[2017-04-16] MEDS: HEPARIN SUB-Q SCH ×3 (05:54→22:08)
[2017-04-16] MEDS: MORPHINE IV PRN ×2 (05:54→10:43)
--- NOTE | 2017-04-16 07:34 | Fluoroscopy Report ---
FLUOROSCOPY ERCP BILIARY PANCREATIC DUCTS History: Biliary obstruction. Findings: Fluoroscopy was provided by radiology during ERCP by gastroenterology. 6 fluoroscopic images were obtained. Common bile duct stones and common bile duct stent were removed per the operative notes. Correlate with the procedural report as needed.
--- NOTE | 2017-04-16 07:46 | Operative Report ---
INDICATION: 1. Choledocholithiasis. 2. Biliary stent removal. MEDICATIONS: Propofol per HEAD PUMPER. COMPLICATIONS: None. DESCRIPTION OF PROCEDURE: The patient was brought to the procedure suite. The patient had the procedure discussed with her at length. All risks, complications, and benefits were discussed with the patient who signed for the procedure performed. The patient was placed in left lateral decubitus position. Mouth block was placed in the patient's oral cavity. After adequate sedation medication as above, ERCP scope was placed in the mouth and brought to the level of the second portion of duodenum. No retroflexion view performed. The patient's vital signs remained stable throughout the procedure. FINDINGS: There was noted to be a stent protruding from the ampulla in the second portion. This was removed with a snare and retrieved. There was noted to be a small previous sphinterotomy to be employed with a previous small sphincterotomy. A sphincterotome was inserted and cholangiogram performed. Cholangiogram showed a dilated common bile duct approximately 10-12 mm with filling defects. Eventually, a pancreatogram was also done which appeared normal. Sphincterotomy was then performed. This was a technically difficult procedure lasting over an hour and a half. Use of multiple balloons we were able to remove a large amount of sludge and stones. Despite that, there seemed to be a couple of impacted stones in the distal common bile duct, which despite multiple attempts and different maneuvers were unable to be retrieved and removed. A 10-[place] 7 cm stent was then placed. Post-procedure, the patient was satisfactory. The patient tolerated the procedure well. No complications during the procedure. IMPRESSION: 1. Stent noted and removed. 2. Cholangiogram with filling defects and dilated common bile duct. 3. Normal pancreatogram. 4. Sphincterotomy performed. 5. Large amount of stone and sludge removed. 6. Distal impacted stone and sludge unable to remove despite multiple attempts and maneuvers with extended procedure. 7. Stent placed. RECOMMENDATIONS: 1. Follow labs. 2. If labs improve okay to discharge. 3. We will plan for repeat ERCP as an outpatient. JOB# [id number] [facility]
[2017-04-16 07:58] LABS: Alanine Aminotransferase 159 units/L (7-56); Albumin 3.5 g/dL (3.9-5); BUN/Creatinine Ratio 23; Blood Urea Nitrogen 9 mg/dL (7-17); Calcium 9.1 mg/dL (8.4-10.2); Hemolysis Index 0
[2017-04-16 09:53] LABS: Albumin 3.4 g/dL (3.9-5); Bilirubin,Direct 5.8 mg/dL (0-0.2)
[2017-04-16] MEDS: NOVOLOG SUB-Q SCH ×4 (10:45→22:08)
--- NOTE | 2017-04-16 12:09 | Progress Note ---
Assessment and Plan //Hyperammonemia; - likely due to intra and extra hepatic billiary dilatation - ammonia level improving, patient is alert awake oriented 3 - cont Lactulose and monitor levels - patient was never in AMS, did not develop encephalopathy in this admission // CBD stone with Transaminitis; - very minimal improvement, s/p ERCP 04/15 with sphinterotomy and 10F 7 cm stent placed - ERCP showed large amount of stones and sludge removed w/ balloons - cholangiogram w/ dilated cbd w/ filling defects - distal large stones/sludge could not be removed with multiple attempts and procedure was terminated - need repeat ERCP as outpt // Hypertension; moderate controlled, continue current antihypertensives When necessary medications // Dyslipidemia; hold statin in view of transaminitis // Hyperbilirubinemia; postobstruction, hepatitis panel negative // Patient reports unintentional weight loss for the last few weeks, Workup is in progress by her primary care physician, GI following --DVT prophylaxis; SCDs Disposition; possible discharge in 1-2 days if stable and LFT trends down Brief history: 46 y/o female h/o cholecystectomy presented with chest/upper abdominal pain fand 2 weeks of intense itching. In the ER noted to have markdly elevated LFT, high ammonia level. Radiological test: CT abdomen pelvis: endobiliary stent displacement with intra and extra hepatic billiary dilatation ERCP, CXR Hospitalist Physical exam: GENERAL: well-developed AAF lying on bed appeared to be in mild discomfort. HEENT: Normocephalic. Atraumatic. No conjunctival congestion or icterus. Patient has moist mucous membranes. NECK: Supple. Trachea midline. CHEST/LUNGS: Clear to auscultated bilaterally, breathing nonlabored. No wheezes crackles or rhonchi. HEART/CARDIOVASCULAR: Regular in rate and rhythm. S1 and S2 positive. ABDOMEN: Abdomen is soft, epigastric tenderness. Patient has normal bowel sounds. SKIN: There is no rash. Warm and dry. NEURO: No focal motor deficit. Follows command. MUSCULOSKELETAL: No joint effusion or tenderness. EXTRIMITY: No edema, no cyanosis or clubbing. PSYCH: Cooperative. Subjective Date of service: 04/16/17 Interval history: Patient seen and examined. Medical records and medication list reviewed. No acute event overnight noted by the RN. Patient denies any chest pain or difficulty breathing. Patient is complaining of nausea and unable to tolerate diet along with abdominal pain Discussed plan of care at bedside with patient. Objective - Constitutional Vitals: Vital Signs - 12hr 04/16/17 08:11 Temperature 98.5 F Pulse Rate 86 Respiratory 20 Rate Blood Pressure 138/82 O2 Sat by Pulse 99 Oximetry - Labs CBC & Chem 7: 04/12/17 19:07 04/17/17 06:09 Labs: Abnormal lab results 04/15/17 04/16/17 04/16/17 Range/Units 21:25 05:56 06:07 Sodium 134 L (137-145) mmol/L Potassium 3.5 L (3.6-5.0) mmol/L Chloride 97.4 L (98-107) mmol/L Carbon Dioxide 21 L (22-30) mmol/L Creatinine 0.4 L (0.7-1.2) mg/dL Glucose 134 H (65-100) mg/dL POC Glucose 143 H 141 H (70-105) Total Bilirubin 8.20 H (0.1-1.2) mg/dL Direct Bilirubin (0-0.2) mg/dL AST 304 H (5-40) units/L ALT 159 H (7-56) units/L Alkaline Phosphatase 1750 H (35-129) units/L Ammonia (25-60) umol/L Albumin 3.5 L (3.9-5) g/dL 04/16/17 04/16/17 Range/Units 09:11 09:11 Sodium (137-145) mmol/L Potassium (3.6-5.0) mmol/L Chloride (98-107) mmol/L Carbon Dioxide (22-30) mmol/L Creatinine (0.7-1.2) mg/dL Glucose (65-100) mg/dL POC Glucose (70-105) Total Bilirubin 8.00 H (0.1-1.2) mg/dL Direct Bilirubin 5.8 H (0-0.2) mg/dL AST 293 H (5-40) units/L ALT 158 H (7-56) units/L Alkaline Phosphatase 1699 H (35-129) units/L Ammonia 81.0 H (25-60) umol/L Albumin 3.4 L (3.9-5) g/dL
--- NOTE | 2017-04-16 12:21 | Gastroenterology Progress Note ---
Assessment and Plan GI: pt s/p ercp with large amount sludge/stones removed some some still retained , stent placed - slight decrease LFT's today - if LFT's much improved in am can d/c w/ plan ercp and stent removal outpt - if LFT's not improved will consider repeat ERCP as inpt - will follow Subjective Date of service: 04/16/17 Interval history: - pt reports still w/ itching. Reports some abdominal pain Objective - Constitutional Vitals: Temp Pulse Resp BP Pulse Ox 98.5 F 86 20 138/82 99 04/16/17 08:11 04/16/17 08:11 04/16/17 08:11 04/16/17 08:11 04/16/17 08:11 General appearance: no acute distress - Respiratory Respiratory: bilateral: CTA - Cardiovascular Rhythm: regular Heart Sounds: Present: S1 & S2 - Gastrointestinal General gastrointestinal: Present: soft, non-tender, non-distended - Labs CBC & Chem 7: 04/12/17 19:07 04/16/17 05:56 Labs: Laboratory Results - last 24 hr 04/15/17 04/16/17 04/16/17 21:25 05:56 06:07 Sodium 134 L Potassium 3.5 L Chloride 97.4 L Carbon Dioxide 21 L Anion Gap 19 BUN 9 Creatinine 0.4 L Estimated GFR > 60 BUN/Creatinine Ratio 23 Glucose 134 H POC Glucose 143 H 141 H Calcium 9.1 Total Bilirubin 8.20 H Direct Bilirubin Indirect Bilirubin AST 304 H ALT 159 H Alkaline Phosphatase 1750 H Ammonia Total Protein 7.4 Albumin 3.5 L Albumin/Globulin Ratio 0.9 04/16/17 04/16/17 09:11 09:11 Sodium Potassium Chloride Carbon Dioxide Anion Gap BUN Creatinine Estimated GFR BUN/Creatinine Ratio Glucose POC Glucose Calcium Total Bilirubin 8.00 H Direct Bilirubin 5.8 H Indirect Bilirubin 2.2 AST 293 H ALT 158 H Alkaline Phosphatase 1699 H Ammonia 81.0 H Total Protein 7.4 Albumin 3.4 L Albumin/Globulin Ratio 0.9
[2017-04-16] MEDS ORDERED: K-DUR PO ONE (13:00)
[2017-04-16] MEDS: URSO PO SCH ×2 (13:07→17:46)
[2017-04-16] MEDS: ULTRAM PO PRN (20:32)
[2017-04-17] MEDS: NACL 0.45% 1000 ML 1,000 ML IV SCH (00:57)
[2017-04-17] MEDS: NACL 0.9% 1000 ML 1,000 ML IV SCH (01:02)
[2017-04-17] MEDS: HEPARIN SUB-Q SCH ×3 (05:35→22:38)
[2017-04-17 07:03] LABS: Alanine Aminotransferase 116 units/L (7-56); Albumin 3.3 g/dL (3.9-5); BUN/Creatinine Ratio 20; Blood Urea Nitrogen 8 mg/dL (7-17); Calcium 8.8 mg/dL (8.4-10.2); Hemolysis Index 0
[2017-04-17] MEDS: NOVOLOG SUB-Q SCH ×4 (07:30→22:42)
[2017-04-17] MEDS: ULTRAM PO PRN ×2 (09:23→22:38)
[2017-04-17] MEDS: URSO PO SCH ×3 (09:24→18:21)
[2017-04-17] MEDS: K-DUR PO SCH (14:06)
--- NOTE | 2017-04-17 17:55 | Gastroenterology Progress Note ---
Assessment and Plan GI: s/p ercp with stone/sludge removal and repeat stent placement due to remaining stone/sludge - LFT's improving today - if LFT's continue to improve in am can d/c w/ repeat ERCP outpt - if LFT's worsen then repeat ERCP as inpt - will follow Subjective Date of service: 04/17/17 Interval history: - reports pain better, tolerating po Objective - Constitutional Vitals: Temp Pulse Resp BP Pulse Ox 98.1 F 81 20 131/77 97 04/17/17 07:56 04/17/17 07:56 04/17/17 07:56 04/17/17 07:56 04/17/17 07:56 General appearance: no acute distress - EENT Eyes: PERRL - Respiratory Respiratory: bilateral: CTA - Cardiovascular Rhythm: regular Heart Sounds: Present: S1 & S2 - Gastrointestinal General gastrointestinal: Present: soft, non-tender, non-distended - Labs CBC & Chem 7: 04/12/17 19:07 04/17/17 06:09 Labs: Laboratory Results - last 24 hr 04/16/17 04/17/17 04/17/17 21:39 06:09 06:39 Sodium 133 L Potassium 3.3 L Chloride 97.5 L Carbon Dioxide 24 Anion Gap 15 BUN 8 Creatinine 0.4 L Estimated GFR > 60 BUN/Creatinine Ratio 20 Glucose 100 POC Glucose 120 H 94 Calcium 8.8 Total Bilirubin 6.10 H AST 143 H ALT 116 H Alkaline Phosphatase 1382 H Total Protein 7.1 Albumin 3.3 L Albumin/Globulin Ratio 0.9 04/17/17 04/17/17 12:03 17:29 Sodium Potassium Chloride Carbon Dioxide Anion Gap BUN Creatinine Estimated GFR BUN/Creatinine Ratio Glucose POC Glucose 88 97 Calcium Total Bilirubin AST ALT Alkaline Phosphatase Total Protein Albumin Albumin/Globulin Ratio
[2017-04-18] MEDS: HEPARIN SUB-Q SCH ×2 (05:11→14:44)
[2017-04-18] MEDS: NACL 0.9% 1000 ML 1,000 ML IV SCH (05:11)
[2017-04-18] MEDS: NOVOLOG SUB-Q SCH ×2 (08:30→12:38)
[2017-04-18] MEDS: URSO PO SCH ×2 (08:31→12:39)
[2017-04-18 08:57] VITALS: BP 138/82
--- NOTE | 2017-04-18 09:09 | Progress Note ---
Assessment and Plan //Hyperammonemia; - likely due to intra and extra hepatic billiary dilatation - ammonia level improving, patient is alert awake oriented 3 - cont Lactulose and monitor levels - patient was never in AMS, did not develop encephalopathy in this admission // CBD stone with Transaminitis; - very minimal improvement, s/p ERCP 04/15 with sphinterotomy and 10F 7 cm stent placed - ERCP showed large amount of stones and sludge removed w/ balloons - cholangiogram w/ dilated cbd w/ filling defects - distal large stones/sludge could not be removed with multiple attempts and procedure was terminated - need repeat ERCP as outpt // Hypertension; moderate controlled, continue current antihypertensives When necessary medications // Dyslipidemia; hold statin in view of transaminitis // Hyperbilirubinemia; postobstruction, hepatitis panel negative // Patient reports unintentional weight loss for the last few weeks, Workup is in progress by her primary care physician, GI following // hypokalemia, replete and monitor likely from GI loss --DVT prophylaxis; SCDs Disposition; possible discharge in 1-2 days if stable and LFT trends down Brief history: 46 y/o female h/o cholecystectomy presented with chest/upper abdominal pain fand 2 weeks of intense itching. In the ER noted to have markdly elevated LFT, high ammonia level. Radiological test: CT abdomen pelvis: endobiliary stent displacement with intra and extra hepatic billiary dilatation ERCP, CXR Hospitalist Physical exam: GENERAL: well-developed AAF lying on bed appeared to be in mild discomfort. HEENT: Normocephalic. Atraumatic. No conjunctival congestion or icterus. Patient has moist mucous membranes. NECK: Supple. Trachea midline. CHEST/LUNGS: Clear to auscultated bilaterally, breathing nonlabored. No wheezes crackles or rhonchi. HEART/CARDIOVASCULAR: Regular in rate and rhythm. S1 and S2 positive. ABDOMEN: Abdomen is soft, epigastric tenderness. Patient has normal bowel sounds. SKIN: There is no rash. Warm and dry. NEURO: No focal motor deficit. Follows command. MUSCULOSKELETAL: No joint effusion or tenderness. EXTRIMITY: No edema, no cyanosis or clubbing. PSYCH: Cooperative. Subjective Date of service: 04/17/17 Interval history: Patient seen and examined. Medical records and medication list reviewed. No acute event overnight noted by the RN. Patient denies any chest pain or difficulty breathing. Patient is able to tolerate diet today, states improved abdominal pain Discussed plan of care at bedside with patient. Objective - Constitutional Vitals: Vital Signs - 12hr 04/18/17 04/18/17 00:24 08:23 Temperature 99.1 F 98.4 F Pulse Rate 83 85 Respiratory 16 16 Rate Blood Pressure 114/60 138/82 O2 Sat by Pulse 98 99 Oximetry - Labs CBC & Chem 7: 04/12/17 19:07 04/18/17 08:37 Labs: Abnormal lab results 04/17/17 Range/Units 21:48 POC Glucose 115 H (70-105)
[2017-04-18] MEDS: K-DUR PO SCH (09:11)
[2017-04-18 09:23] LABS: Alanine Aminotransferase 80 units/L (7-56); Albumin 3.3 g/dL (3.9-5); BUN/Creatinine Ratio 18; Blood Urea Nitrogen 7 mg/dL (7-17); Hemolysis Index 0
[2017-04-18] MEDS ORDERED: K-DUR PO ONE (11:32)
--- NOTE | 2017-04-18 15:47 | Discharge Summary ---
Providers - Providers Date of Admission: 04/12/17 22:20 Date of discharge: 04/18/17 Attending physician: DARIUS PABLO 04/12/17 22:20 Consult to Physician [CONS] Routine Consulting Provider: BALBIR FINNEY Reason For Exam: abnormal LFTs and jaundice Place consult to:: DR. FINNEY Notified:: A.S. Phone number called:: [phone] Was contact made?: Yes If yes, spoke with:: DR. 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 In the ER noted to have markdly elevated LFT, high ammonia level. Discharge diagnosis and management: //Hyperammonemia; - likely due to intra and extra hepatic billiary dilatation - ammonia level improving, patient is alert awake oriented 3 - cont Lactulose and monitor levels - patient was never in AMS, did not develop encephalopathy in this admission // CBD stone with Transaminitis; - very minimal improvement, s/p ERCP 04/15 with sphinterotomy and 10F 7 cm stent placed - ERCP showed large amount of stones and sludge removed w/ balloons - cholangiogram w/ dilated cbd w/ filling defects - distal large stones/sludge could not be removed with multiple attempts and procedure was terminated - need repeat ERCP as outpt // Hypertension; moderate controlled, continue current antihypertensives When necessary medications // Dyslipidemia; hold statin in view of transaminitis // Hyperbilirubinemia; postobstruction, hepatitis panel negative // Patient reports unintentional weight loss for the last few weeks, Workup is in progress by her primary care physician, GI following // hypokalemia, replete and monitor likely from GI loss --DVT prophylaxis; SCDs Disposition; home with outpt follow up Radiological test: CT abdomen pelvis: endobiliary stent displacement with intra and extra hepatic billiary dilatation ERCP, CXR Hospitalist Physical exam: GENERAL: well-developed AAF lying on bed appeared to be in mild discomfort. HEENT: Normocephalic. Atraumatic. No conjunctival congestion or icterus. Patient has moist mucous membranes. NECK: Supple. Trachea midline. CHEST/LUNGS: Clear to auscultated bilaterally, breathing nonlabored. No wheezes crackles or rhonchi. HEART/CARDIOVASCULAR: Regular in rate and rhythm. S1 and S2 positive. ABDOMEN: Abdomen is soft, epigastric tenderness. Patient has normal bowel sounds. SKIN: There is no rash. Warm and dry. NEURO: No focal motor deficit. Follows command. MUSCULOSKELETAL: No joint effusion or tenderness. EXTRIMITY: No edema, no cyanosis or clubbing. PSYCH: Cooperative. Disposition: DC-01 TO HOME OR SELFCARE Time spent for discharge: 32 minutes Core Measure Documentation - Palliative Care Palliative Care/ Comfort Measures: Not Applicable - Core Measures Any of the following diagnoses?: none Exam - Constitutional Vitals: Temp Pulse Resp BP Pulse Ox 98.4 F 85 16 138/82 99 04/18/17 08:23 04/18/17 08:23 04/18/17 08:23 04/18/17 08:23 04/18/17 08:23 Plan Activity: advance as tolerated Weight Bearing Status: Non-Weight Bearing Diet: low fat, low cholesterol Additional Instructions: f/u with GI outpt for repeat ERCP Follow up with: PRIMARY CARE, [Primary Care Provider] - 3-5 Days Prescriptions: Diphenhydramine HCl/Zinc Acet [Benadryl Itch Stopping Crm] 28.3 gm TP TID PRN 30 Days cream..g. PRN Reason: Itching traMADol [Ultram 50 MG tab] 50 mg PO BID PRN #30 tablet PRN Reason: Pain, Moderate (4-6) Ursodiol [Joe] 500 mg PO TIDDIAB #90 tablet
--- NOTE | 2017-04-18 16:02 | Gastroenterology Progress Note ---
Assessment and Plan GI: biliary obstruction s/p ercp - lft's continue to improve - continue Joe as outpt - pt told to make outpt f/u for repeat ERCP, office number given - ok to d/c, will sign off Subjective Date of service: 04/18/17 Interval history: - no problems overnight Objective - Constitutional Vitals: Temp Pulse Resp BP Pulse Ox 98.4 F 85 16 138/82 99 04/18/17 08:23 04/18/17 08:23 04/18/17 08:23 04/18/17 08:23 04/18/17 08:23 General appearance: no acute distress - EENT Eyes: PERRL, scleral icterus - Respiratory Respiratory: bilateral: CTA - Cardiovascular Rhythm: regular Heart Sounds: Present: S1 & S2 - Gastrointestinal General gastrointestinal: Present: soft, non-tender, non-distended - Labs CBC & Chem 7: 04/12/17 19:07 04/18/17 08:37 Labs: Laboratory Results - last 24 hr 04/17/17 04/17/17 04/18/17 17:29 21:48 06:01 Sodium Potassium Chloride Carbon Dioxide Anion Gap BUN Creatinine Estimated GFR BUN/Creatinine Ratio Glucose POC Glucose 97 115 H 101 Calcium Total Bilirubin AST ALT Alkaline Phosphatase Total Protein Albumin Albumin/Globulin Ratio 04/18/17 04/18/17 08:37 11:35 Sodium 137 Potassium 3.5 L Chloride 97.0 L Carbon Dioxide 27 Anion Gap 17 BUN 7 Creatinine 0.4 L Estimated GFR > 60 BUN/Creatinine Ratio 18 Glucose 90 POC Glucose 123 H Calcium 9.0 Total Bilirubin 4.70 H AST 67 H ALT 80 H Alkaline Phosphatase 1131 H Total Protein 7.4 Albumin 3.3 L Albumin/Globulin Ratio 0.8
[2017-04-18] MEDS ORDERED: HumaLOG SUB-Q SCH (16:30)
== END 2017-04-18 17:10 | disposition home or self-care (01) | DRG 445 ==
LOC: ED 16:13 → 3A 22:20
PROVIDERS: ADMIT Internal Medicine; ATTEND Internal Medicine
PROC: 0FC98ZZ Extirpation of Matter from Common Bile Duct, Via Natural or Artificial Opening Endoscopic (ICD-10-PCS; principal; 2017-04-15)
PROC: 0FPB8DZ Removal of Intraluminal Device from Hepatobiliary Duct, Via Natural or Artificial Opening Endoscopic (ICD-10-PCS; 2017-04-15)
PROC: 0F798DZ Dilation of Common Bile Duct with Intraluminal Device, Via Natural or Artificial Opening Endoscopic (ICD-10-PCS; 2017-04-15)
PROC: BF111ZZ Fluoroscopy of Biliary and Pancreatic Ducts using Low Osmolar Contrast (ICD-10-PCS; 2017-04-15)
DX: K80.51 Calculus of bile duct without cholangitis or cholecystitis with obstruction (principal); E72.20 Disorder of urea cycle metabolism, unspecified; E80.6 Other disorders of bilirubin metabolism; R74.8 Abnormal levels of other serum enzymes; R74.0 Nonspecific elevation of levels of transaminase and lactic acid dehydrogenase [LDH]; I10 Essential (primary) hypertension; E78.5 Hyperlipidemia, unspecified; E87.6 Hypokalemia; G43.909 Migraine, unspecified, not intractable, without status migrainosus; E11.9 Type 2 diabetes mellitus without complications; K72.90 Hepatic failure, unspecified without coma; Z90.49 Acquired absence of other specified parts of digestive tract; Z88.6 Allergy status to analgesic agent
CPT/HCPCS: 36415; 71046; 74177; 74330; 80048; 80053; 80074; 81001; 81025; 82140; 82962; 83036; 83690; 84484; 85025; 85610; 85730; 93005; 93010; 96374; C1726; C2625; J1170; J1200; J1610; J1644; J2001; J2250; J2270; J2405; J2704; J7030; Q9967